=== PATIENT | female | born 1985 | race Caucasian/White ===

== ENCOUNTER 2020-01-05 07:55 | Emergency (ER) | payer BC ==
[~2020-01-05] VITALS: Ht 170.2 cm; Wt 61.2 kg
[2020-01-05 08:05] VITALS: BP_SYST 104
[2020-01-05] MEDS ORDERED: HYDROcodone/ACETAMIN 5-325 MG TAB (NORCO/ VICODIN) PO ONE (08:30)
[2020-01-05] MEDS ORDERED: DIPH-TET-PERTUS Vaccine 0.5 ML VIAL (ADACEL) I.M. ONE (08:30)
[2020-01-05 09:30] VITALS: BP_SYST 122
== END 2020-01-05 09:31 | disposition home or self-care (01) ==
LOC: SED 07:55
DX: S90.01XA Contusion of right ankle, initial encounter (principal); V09.9XXA Pedestrian injured in unspecified transport accident, initial encounter; Y93.89 Activity, other specified; Y92.89 Other specified places as the place of occurrence of the external cause; Y99.8 Other external cause status
CPT/HCPCS: 73564; 81025; 90715; 99284

== ENCOUNTER 2020-01-06 12:07 | Emergency (ER) | payer BC ==
[~2020-01-06] VITALS: Ht 170.2 cm; Wt 61.2 kg
[2020-01-06 12:16] VITALS: BP_SYST 150
[2020-01-06] MEDS ORDERED: HYDROcodone/ACETAMIN 5-325 MG TAB (NORCO/ VICODIN) PO ONE (12:30)
--- NOTE | 2020-01-06 12:45 | NUR ---
ER Dr. Stout at bedside examining patient.
--- NOTE | 2020-01-06 12:45 | NUR ---
Placed in room 2 . Placed on radiation monitor, blood pressure machine and pulse oximeter. To gown for exam. Side rails up.
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
--- NOTE | 2020-01-06 12:46 | NUR ---
Patient transported to radiology via wheelchair, accompanied by staff.
[2020-01-06 15:20] VITALS: BP_SYST 150
--- NOTE | 2020-01-06 15:20 | NUR ---
Patient given written and verbal discharge instructions and verbalizes understanding. ER MD discussed with patient the results and treatment provided. Patient in stable condition. ID arm band removed. No prescriptions given. Patient educated on pain management and to follow up with PMD. Pain Scale 0. Opportunity for questions provided and answered. Medication side effect fact sheet provided.
== END 2020-01-06 15:20 | disposition home or self-care (01) ==
LOC: SED 12:07
DX: M54.6 Pain in thoracic spine (principal); Z88.8 Allergy status to other drugs, medicaments and biological substances
CPT/HCPCS: 71046-TC; 72072-TC; 99284

== ENCOUNTER 2020-02-20 20:55 | Emergency (ER) | payer BC ==
[~2020-02-20] VITALS: Ht 170.2 cm; Wt 61.2 kg
[2020-02-20 20:55] VITALS: BP_SYST 102
--- NOTE | 2020-02-20 21:00 | NUR ---
Patient to ER bed 6 to gown for evaluation. Side rails up.
--- NOTE | 2020-02-20 21:05 | NUR ---
DR. AZUL EVALUATING PT
--- NOTE | 2020-02-20 21:10 | NUR ---
PT PRESENTS FROM HOME WITH C/O LOWER ABD PAIN THAT STARTED AROUND 8:30 PM TODAY. STATES THAT THE PAIN ON ONSET WAS 10/10 BUT SINCE COMING TO THE ER PAIN NOW IS 2/10. DENIES ANY N/V, DIARRHEA OR CONSTIPATION. AAOX4, V/S STABLE
[2020-02-20] MEDS ORDERED: NAPROXEN 250 MG TABLET PO SCH (21:15)
--- NOTE | 2020-02-20 21:30 | NUR ---
PT OFFERED PAIN MEDICATION PER MD ORDER, PT REFUSED
[2020-02-20 21:39] LABS: CLARITY/URINE SLIGHTLY CLOUDY (CLEAR); COLOR,URINE YELLOW (YELLOW); PH,URINE 6.5 (5.0-8.0)
--- NOTE | 2020-02-20 21:39 | NUR ---
RPatient transported to radiology via AMBULATION, accompanied by STAFF
[2020-02-20 21:40] LABS: BILIRUBIN,URINE NEGATIVE (NEGATIVE); BLOOD, URINE NEGATIVE (NEGATIVE); GLUCOSE,URINE NEGATIVE (NEGATIVE); KETONES,URINE NEGATIVE (NEGATIVE); LEUKOCYTE ESTERASE ,URINE NEGATIVE (NEGATIVE); NITRITE, URINE NEGATIVE (NEGATIVE); PROTEIN URINE NEGATIVE (NEGATIVE)
[2020-02-20 21:41] LABS: UROBILINOGEN,URINE 0.2 (0.2-1.0)
[2020-02-20 21:57] VITALS: BP_SYST 102
--- NOTE | 2020-02-20 21:57 | NUR ---
Patient given written and verbal discharge instructions and verbalizes understanding. ER MD discussed with patient the results and treatment provided. Patient in stable condition. ID arm band removed. Rx of NAPROXEN given. Patient educated on pain management and to follow up with PMD. Pain Scale 0/10. Opportunity for questions provided and answered. Medication side effect fact sheet provided.
[2020-02-20] MEDS ORDERED: NAPROXEN 250 MG TABLET ONE (22:07)
== END 2020-02-20 21:57 | disposition home or self-care (01) ==
LOC: SED 20:55
DX: R10.30 Lower abdominal pain, unspecified (principal); F12.90 Cannabis use, unspecified, uncomplicated; F17.200 Nicotine dependence, unspecified, uncomplicated; Z71.6 Tobacco abuse counseling
CPT/HCPCS: 74018; 81003; 81025; 99284